=== PATIENT | male | born 1950 | race African-American/Black ===

== ENCOUNTER 2018-02-16 21:16 | Emergency (ER) | payer MEDICARE, OTHER ==
[2018-02-16 21:26] VITALS: BMI 29.0
--- NOTE | 2018-02-16 21:27 | PDOC ---
Rapid Medical Evaluation Time Seen by Provider: 02/16/18 21:22 Medical Evaluation: 02/16/18 21:23 I have performed a brief in-person evaluation of this patient. The patient presents with a chief complaint of: Right foot ulcer Pertinent physical exam findings: ulcer to medial malleolus of right foot. Scant yellow drainage present. 2+DP pulses present. I have ordered the following: labs The patient will proceed to the ED for further evaluation. Discharge Disposition - Diagnosis Foot ulcer - Referrals - Patient Instructions - Post Discharge Activity
[2018-02-16 22:06] LABS: EOS % 1.4 % (0-4.5); HEMATOCRIT 35.1 % (35.4-49); HEMOGLOBIN 11.4 GM/dL (11.7-16.9); LYMPH % 27.9 % (8-40); MCH 29.9 pg (25.7-33.7); MCHC 32.5 g/dl (32.0-35.9); MEAN CELL VOLUME 92.1 fl (80-96); MEAN PLT VOLUME 8.8 fl (7.5-11.1); NEUT % 58.7 % (42.8-82.8); PLATELET COUNT 195 K/MM3 (134-434); RBC 3.81 M/mm3 (4.00-5.60); RDW 13.5 % (11.9-15.9); WHITE BLOOD COUNT 4.9 K/mm3 (4.0-10.0)
--- NOTE | 2018-02-16 22:12 | PDOC ---
Attending Attestation - Resident Resident Name: [email or web address] - ED Attending Attestation I have performed the following: I have examined & evaluated the patient, The case was reviewed & discussed with the resident, I agree w/resident's findings & plan - HPI HPI: 02/16/18 23:54 The patient is a 67 year old male, with a significant past medical history of HTN, who presents to the emergency department with, 5 days of a wound to the right medial ankle. As per patient, his ankle was itchy Monday and upon itching the area it became open. He reports minimal purulent discharge to the affected area. He notes chronic wounds to the area, last episode 3 years ago. He cannot remember his podiatrists name. He denies any recent fevers, chills, headache or dizziness. He denies any recent nausea, vomit, diarrhea or constipation. He denies any recent chest pain or shortness of breath. He denies any recent dysuria, frequency, urgency or hematuria. Allergies: NKA Primary Care Physician: Dr. Kohler Attestations - Attestations 02/16/18 23:55 Documentation prepared by Frankie Morris, acting as medical administrative specialist for Tala Littlejohn MD.
[2018-02-16 22:37] LABS: ALBUMIN 4.3 g/dl (3.4-5.0); ALK PHOS 63 U/L (45-117); ANION GAP -3 MMOL/L (8-16); BILIRUBIN,TOTAL 0.5 mg/dL (0.2-1); BLOOD UREA NITROGEN 18 mg/dL (7-18); CALCIUM 9.7 mg/dL (8.5-10.1); CHLORIDE 109 mmol/L (98-107); CO2 27 mmol/L (21-32); CREATININE 0.8 mg/dL (0.55-1.3); GLUCOSE,RANDOM 97 mg/dL (74-106); POTASSIUM 3.8 mmol/L (3.5-5.1); SGOT/AST 27 U/L (15-37); SGPT/ALT 38 U/L (13-61); SODIUM 134 mmol/L (136-145); TOT PROT 7.8 g/dl (6.4-8.2)
[2018-02-16] MEDS ORDERED: ACETAMINOPHEN 500 MG TABLET (FP) PO ONE (22:39)
[2018-02-16] MEDS ORDERED: ACETAMINOPHEN 325 MG TABLET (FP) ONE (22:50)
[2018-02-16] MEDS ORDERED: CEPHALEXIN MONOHYDRATE 500 MG CAPSULE (UD) PO ONE (23:28)
--- NOTE | 2018-02-16 23:30 | PDOC ---
History of Present Illness - General Chief Complaint: Wound Stated Complaint: FOOT PAIN Time Seen by Provider: 02/16/18 21:22 History Source: Patient Exam Limitations: No Limitations - History of Present Illness Initial Comments: 67 y/o male presenting to [facility] ER via private auto complaining of wound to right ankle. Pt reports the wound developed on Monday (02/12/2018) after scratching the area. He denies bleeding or purulent discharge. Denies fevers, chills, diaphoresis, or rash surrounding wound. Reports a history three years ago of chronic, poorly healing wounds on both left and right lower extremities that required surgical debridement. Unable to recall name of emergency room technician. Denies history of diabetes. 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 Endorses chronic lower extremity swelling. Right medial ankle. 7x4.5 with granulation tissue into fat layer. NO necrosis. 2 + edema without cellulitic lesions. PCP: Bayron Kohler Medical Hx: - HTN Surgical Hx: - Debridement of chronic leg wounds Past History - Past Medical History Allergies/Adverse Reactions: Allergies Allergy/AdvReac Type Severity Reaction Status Date / Time No Known Allergies Allergy Verified 02/16/18 21:26 COPD: No CHF: No HTN: Yes - Suicide/Smoking/Psychosocial Hx Smoking History: Never smoked Review of Systems - Review of Systems Able to Perform ROS?: Yes Comments:: In addition to that documented in the HPI above, the additional ROS was obtained : Constitutional: Denies fevers or chills Eyes: Denies vision changes ENMT: Denies sore throat CV: Denies chest pain Resp: Denies SOB GI: Denies vomiting or diarrhea *Physical Exam - Vital Signs Last Vital Signs Temp Pulse Resp BP Pulse Ox 99.1 F 83 18 179/95 H 97 02/16/18 21:22 02/16/18 21:22 02/16/18 21:22 02/16/18 21:22 02/16/18 21:22 - Physical Exam Comments: Constitutional: Well-developed, well-nourished male in no acute distress or obvious discomfort. Found sitting up right on edge of hospital bed. Alert and oriented x4. Answered all questions appropriately and completely. Speech was non -labored, non-pressured. HEENT: Normocephalic. No obvious external signs of trauma. Hearing grossly normal. No nasal discharge. Neck is supple, trachea is midline. Cardiovascular: Regular rate and regular rhythm. No murmur, rubs, clicks, or gallops. Peripheral pulses: Radial pulses full. Respiratory: Breathing unlabored. Equal chest rise and fall. Clear to auscultation bilaterally. No stridor, no wheezing, no rhonchi. Neuro: Alert and oriented. Moving all four extremities spontaneously. MSK / Skin: Right medial ankle: 7cm x4.5cm wound into fat layer with central granulation tissue and devascularized tissue at edge; no purulence, necrosis, or surrounding cellulitic lesion. R Le+ pretibial edema. L Le+ pretibila edema. Globally, skin is warm and dry. Psych: Affect: appropriate. Mood: normal. ED Treatment Course - LABORATORY CBC & Chemistry Diagram: 02/16/18 21:58 02/16/18 21:58 - ADDITIONAL ORDERS Additional order review: Laboratory Results 02/16/18 21:58 Sodium 134 L Potassium 3.8 Chloride 109 H Carbon Dioxide 27 Anion Gap -3 L BUN 18 Creatinine 0.8 Creat Clearance w eGFR > 60 Random Glucose 97 Calcium 9.7 Total Bilirubin 0.5 AST 27 ALT 38 Alkaline Phosphatase 63 Total Protein 7.8 Albumin 4.3 02/16/18 21:58 RBC 3.81 L MCV 92.1 MCHC 32.5 RDW 13.5 MPV 8.8 Neutrophils % 58.7 Lymphocytes % 27.9 Monocytes % 11.0 H Eosinophils % 1.4 Basophils % 1.0 - Medications Given in the ED: ED Medications Discontinued Medications Generic Name Dose Route Start Last Admin Trade Name Freq PRN Reason Stop Dose Admin Acetaminophen 975 mg 02/16/18 22:39 02/16/18 22:51 Tylenol - PO 02/16/18 22:40 975 mg ONCE ONE Administration Medical Decision Making - Medical Decision Making *Reviewed vital signs, nursing notes, and prior visit documentation (if available). 67 y/o male with wound to right ankle. No reported systemic symptoms. H/o of similar three years ago. Afebrile. Vitals unremarkable for tachycardia or hypotension. Suspect wound is secondary to dependent venous stasis and/or poor circulation. Low suspicion for local or systemic infection. Will obtain CBC, CMP , and wound culture obtained. CBC unremarkable for anemia or leukocytosis. CMP unremarkable for electrolyte derangement. LFTs not elevated. Culture pending. Will prescribed 7 day course of Keflex as wound reportedly developed recently. Discussed laboratory results with pt. Answered all questions. Provided return precautions. Pt expressed verbal understanding and agreement with plan to discharge home with outpatient podiatry or PCP follow up. *DC/Admit/Observation/Transfer Diagnosis at time of Disposition: Foot ulcer Qualifiers: Laterality: right Non-pressure ulcer stage: with fat layer exposed Qualified Code(s): L97.512 - Non-pressure chronic ulcer of other part of right foot with fat layer exposed - Discharge Dispostion Disposition: HOME Condition at time of disposition: Stable Decision to Admit order: No - Referrals Referrals: Bayron Kohler MD [Primary Care Provider] - Cassi Nava MD [Staff Physician] - - Patient Instructions Printed Discharge Instructions: DI for Wound Infection Additional Instructions: Your blood work did not show signs of infection today. The wound culture will take several days to result. The hospital will call if the results are abnormal. You can also call for results after four days. Keep the wound clean and bandaged until you are able to follow up with a physician or emergency room technician. I have sent a prescription for Keflex, an antibiotic, to your pharmacy. Take as directed on the package. You need to follow up with a emergency room technician. I have placed a referral for you to see Dr. Nava. You will need to call to make an appointment. The number is included in this packet. Go to the nearest emergency department if your condition worsens or you feel like you need additional emergency evaluation. Print Language: COMORAN - Post Discharge Activity
[2018-02-16] MEDS ORDERED: CEPHALEXIN MONOHYDRATE 500 MG CAPSULE (UD) ONE (23:35)
[2018-02-17 01:05] VITALS: BP 133/72; PULSE 88; TEMP 98.3
== END 2018-02-17 01:02 | disposition home or self-care (01) ==
LOC: JER 21:16 → EDBD 21:16 → JER 02-17 01:02
DX: L97.512 Non-pressure chronic ulcer of other part of right foot with fat layer exposed (principal); I10 Essential (primary) hypertension
CPT/HCPCS: 36415; 80053; 85025; 87070; 87186; 87205; 99283-25

== ENCOUNTER 2022-05-18 04:29 | Day surgery (SDC) | payer OTHER ==
[2022-05-17 09:37] VITALS: BMI 29.8
[~2022-05-18 04:29] MED LIST: BSS (NA/CA/MG/K) BALANCED SALT SOLUTION OPHTH SOLN 15 ML BOTTLE OD ONE; CHONDROITIN SU A/HYALUR SOD 1 KIT IO ONE; EPINEPHrine 1:1,000 1,000 MCG/ML ML SQ ONE; LIDOCAINE 1% P/F 10 MG/ML VIAL PNB ONE; POVIDONE-IODINE 5% OPHTHALMIC PREP 30 ML SOLUTION OD ONE; TETRACAINE 0.5% OPHTH SOLN 2 ML BOTTLE OD ONE; TRYPAN BLUE 0.5 ML DISP.SYRIN IO ONE
[2022-05-18] MEDS ORDERED: BSS (NA/CA/MG/K) BALANCED SALT SOLUTION OPHTH SOLN 15 ML BOTTLE ONE (07:26)
[2022-05-18] MEDS ORDERED: POVIDONE-IODINE 5% OPHTHALMIC PREP 30 ML SOLUTION ONE (07:26)
[2022-05-18] MEDS ORDERED: TETRACAINE 0.5% OPHTH SOLN 2 ML BOTTLE ONE (07:26)
[2022-05-18] MEDS ORDERED: ACETAMINOPHEN 325 MG TABLET (FP) PO PRN (07:50)
[2022-05-18] MEDS ORDERED: CYCLOPENTOLATE HCL 1% OPHTH SOLN 2 ML BOTTLE OP SCH (08:00)
[2022-05-18] MEDS ORDERED: TROPICAMIDE 1% OPHTH SOLN 15 ML BOTTLE OP SCH (08:00)
[2022-05-18] MEDS ORDERED: OFLOXACIN 0.3% OPHTHALMIC SOLUTION 5 ML BOTTLE OP SCH (08:00)
[2022-05-18] MEDS ORDERED: KETOROLAC TROMETHAMINE 0.5% EYE DROP 1 DROP DROPS OP SCH (08:00)
[2022-05-18] MEDS ORDERED: PHENYLEPHRINE 2.5% OPHTH SOLN 15 ML BOTTLE OP SCH (08:00)
[2022-05-18] MEDS ORDERED: OFLOXACIN 0.3% OPHTHALMIC SOLUTION 5 ML BOTTLE ONE (09:11)
[2022-05-18] MEDS ORDERED: CYCLOPENTOLATE HCL 1% OPHTH SOLN 2 ML BOTTLE ONE (09:11)
[2022-05-18] MEDS ORDERED: KETOROLAC TROMETHAMINE 0.5% EYE DROP 1 DROP DROPS ONE (09:11)
[2022-05-18] MEDS ORDERED: TROPICAMIDE 1% OPHTH SOLN 15 ML BOTTLE ONE (09:11)
[2022-05-18 09:38] VITALS: RESP 18
[2022-05-18] MEDS ORDERED: LIDOCAINE HCL/PF 1% SDV 5ML VIAL ONE (11:11)
[2022-05-18] MEDS ORDERED: MIDAZOLAM HCL 2 MG/2 ML SINGLE DOSE VIAL ONE (11:19)
[2022-05-18] MEDS ORDERED: TETRACAINE 0.5% OPHTH SOLN 2 ML BOTTLE OD ONE (11:28)
[2022-05-18] MEDS ORDERED: POVIDONE-IODINE 5% OPHTHALMIC PREP 30 ML SOLUTION OD ONE (11:29)
[2022-05-18] MEDS ORDERED: BSS (NA/CA/MG/K) BALANCED SALT SOLUTION OPHTH SOLN 15 ML BOTTLE OD ONE (11:30)
[2022-05-18] MEDS ORDERED: LIDOCAINE 1% P/F 10 MG/ML VIAL PNB ONE (11:33)
[2022-05-18] MEDS ORDERED: CHONDROITIN SU A/HYALUR SOD 1 KIT IO ONE (11:34)
[2022-05-18] MEDS ORDERED: EPINEPHrine 1:1,000 1,000 MCG/ML ML SQ ONE (11:42)
[2022-05-18 15:06] VITALS: BP 159/72; PULSE 58; TEMP 97.9
== END 2022-05-18 12:57 | disposition home or self-care (01) ==
LOC: JASU-SURG 04:29
PROVIDERS: ATTEND Ophthalmology
PROC: 08RJ3JZ Replacement of Right Lens with Synthetic Substitute, Percutaneous Approach (ICD-10-PCS; principal; 2022-05-18 11:00)
DX: H26.9 Unspecified cataract (principal)
CPT/HCPCS: 66984; V2632; 82962

== ENCOUNTER 2022-06-01 04:31 | Day surgery (SDC) | payer OTHER ==
[2022-05-26 13:31] VITALS: BMI 29.0
[~2022-06-01 04:31] MED LIST changes: +ACETAMINOPHEN 325 MG TABLET (FP) PO PRN; -BSS (NA/CA/MG/K) BALANCED SALT SOLUTION OPHTH SOLN 15 ML BOTTLE OD ONE; +BSS (NA/CA/MG/K) BALANCED SALT SOLUTION OPHTH SOLN 15 ML BOTTLE OS ONE; -EPINEPHrine 1:1,000 1,000 MCG/ML ML SQ ONE; +EPINEPHrine/PF 1 MG/1 ML (1:1,000) AMPULE IO ONE; -LIDOCAINE 1% P/F 10 MG/ML VIAL PNB ONE; +LIDOCAINE HCL 1% PRESERVATIVE FREE - 30ML VIAL IO ONE; +PHENYLEPHRINE 2.5% OPHTH SOLN 15 ML BOTTLE OP SCH; -POVIDONE-IODINE 5% OPHTHALMIC PREP 30 ML SOLUTION OD ONE; +POVIDONE-IODINE 5% OPHTHALMIC PREP 30 ML SOLUTION OS ONE; +TETRACAINE 0.5% HCL 0.6ML DROPPER.BOTTLE OS ONE; -TETRACAINE 0.5% OPHTH SOLN 2 ML BOTTLE OD ONE; -TRYPAN BLUE 0.5 ML DISP.SYRIN IO ONE
[2022-06-01] MEDS ORDERED: POVIDONE-IODINE 5% OPHTHALMIC PREP 30 ML SOLUTION ONE (07:43)
[2022-06-01] MEDS ORDERED: BSS (NA/CA/MG/K) BALANCED SALT SOLUTION OPHTH SOLN 15 ML BOTTLE ONE (07:43)
[2022-06-01] MEDS ORDERED: LIDOCAINE HCL/PF 1% SDV 5ML VIAL ONE (07:43)
[2022-06-01] MEDS ORDERED: TETRACAINE 0.5% OPHTH SOLN 2 ML BOTTLE ONE (07:43)
[2022-06-01] MEDS ORDERED: KETOROLAC TROMETHAMINE 0.5% EYE DROP 1 DROP DROPS ONE (08:42)
[2022-06-01] MEDS ORDERED: OFLOXACIN 0.3% OPHTHALMIC SOLUTION 5 ML BOTTLE ONE (08:42)
[2022-06-01] MEDS ORDERED: TROPICAMIDE 1% OPHTH SOLN 15 ML BOTTLE ONE (08:42)
[2022-06-01] MEDS ORDERED: CYCLOPENTOLATE HCL 1% OPHTH SOLN 2 ML BOTTLE ONE (08:42)
[2022-06-01] MEDS: OFLOXACIN 0.3% OPHTHALMIC SOLUTION 5 ML BOTTLE OP SCH ×3 (09:12→09:52)
[2022-06-01] MEDS: TROPICAMIDE 1% OPHTH SOLN 15 ML BOTTLE OP SCH ×3 (09:12→09:52)
[2022-06-01] MEDS: CYCLOPENTOLATE HCL 1% OPHTH SOLN 2 ML BOTTLE OP SCH ×3 (09:12→09:51)
[2022-06-01] MEDS: KETOROLAC TROMETHAMINE 0.5% EYE DROP 1 DROP DROPS OP SCH ×3 (09:12→09:52)
[2022-06-01] MEDS: PHENYLEPHRINE 2.5% OPTHALMIC DROP 2ML BOTTLE ONE ×3 (09:12→09:52)
[2022-06-01] MEDS ORDERED: MIDAZOLAM HCL 2 MG/2 ML SINGLE DOSE VIAL ONE (11:02)
[2022-06-01] MEDS ORDERED: TETRACAINE 0.5% HCL 0.6ML DROPPER.BOTTLE OS ONE (11:06)
[2022-06-01] MEDS ORDERED: TETRACAINE 0.5% OPHTH SOLN 2 ML BOTTLE TP ONE (11:06)
[2022-06-01] MEDS ORDERED: POVIDONE-IODINE 5% OPHTHALMIC PREP 30 ML SOLUTION OS ONE (11:08)
[2022-06-01] MEDS ORDERED: LIDOCAINE HCL 1% PRESERVATIVE FREE - 30ML VIAL IO ONE (11:14)
[2022-06-01] MEDS ORDERED: CHONDROITIN SU A/HYALUR SOD 1 KIT IO ONE (11:15)
[2022-06-01] MEDS ORDERED: BSS (NA/CA/MG/K) BALANCED SALT SOLUTION OPHTH SOLN 15 ML BOTTLE OS ONE (11:17)
[2022-06-01] MEDS ORDERED: EPINEPHrine/PF 1 MG/1 ML (1:1,000) AMPULE IO ONE (11:21)
[2022-06-01 11:56] VITALS: PULSE 53; RESP 18
[2022-06-01 12:29] VITALS: BP 140/78; TEMP 98
== END 2022-06-01 12:26 | disposition home or self-care (01) ==
LOC: JASU-SURG 04:31
PROVIDERS: ATTEND Ophthalmology
PROC: 08RK3JZ Replacement of Left Lens with Synthetic Substitute, Percutaneous Approach (ICD-10-PCS; principal; 2022-06-01 11:00)
DX: H26.9 Unspecified cataract (principal)
CPT/HCPCS: V2632